=== PATIENT | male | born 1985 | race American Indian/Alaskan Native ===

== ENCOUNTER 2017-03-20 11:54 | Emergency (ER) | payer OTHER ==
[2017-03-20 12:21] VITALS: BP 156/95
[2017-03-20] MEDS ORDERED: NORCO 7.5/325 PO ONE (14:02)
[2017-03-20] MEDS ORDERED: FLEXERIL PO ONE (14:02)
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
[2017-03-20] MEDS ORDERED: POLYSPORIN TP ONE (15:30)
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
== END 2017-03-20 16:32 | disposition home or self-care (01) ==
LOC: ED 11:54
DX: S01.01XA Laceration without foreign body of scalp, initial encounter (principal); R07.89 Other chest pain; M54.2 Cervicalgia; V89.2XXA Person injured in unspecified motor-vehicle accident, traffic, initial encounter; Y92.488 Other paved roadways as the place of occurrence of the external cause; Y99.8 Other external cause status; Y93.89 Activity, other specified
CPT/HCPCS: 70450; 71020; 72125